=== PATIENT | female | born 1990 | race American Indian/Alaskan Native ===

== ENCOUNTER 2022-06-28 15:46 | Emergency (ER) | payer SELFPAY ==
[2022-06-28 17:39] LABS: Basophils % (Auto) 0.4 % (0.0-1.8); Eosinophils # (Auto) 0.2 K/mm3 (0.0-0.4); Eosinophils % (Auto) 1.5 % (0.0-4.3); Hematocrit 38.4 % (30.3-42.9); Hemoglobin 12.8 gm/dl (10.1-14.3); Mean Corpuscular HGB Conc 33 % (30-34); Mean Corpuscular Volume 82 fl (79-97); Monocytes # (Auto) 0.9 K/mm3 (0.0-0.8); Monocytes % (Auto) 8.5 % (0.0-7.3); Platelet Count 270 K/mm3 (140-440); Red Blood Count 4.69 M/mm3 (3.65-5.03); Red Cell Distribution Width 15.1 % (13.2-15.2)
[2022-06-28 17:57] LABS: Alanine Aminotransferase 14 units/L (7-56); Albumin 4.7 g/dL (3.9-5); Blood Urea Nitrogen 7 mg/dL (7-17); Calcium 9.6 mg/dL (8.4-10.2); Hemolysis Index 20
[2022-06-28 17:59] LABS: BUN/Creatinine Ratio 10
--- NOTE | 2022-06-28 22:20 | Ultrasound Report ---
ULTRASOUND OBSTETRIC INDICATION / CLINICAL INFORMATION: pelvic pain and . Clinical Gestational Age (GA) in weeks, days: 6, 3 TECHNIQUE: Transabdominal and Transvaginal. COMPARISON: None available. FINDINGS: GESTATIONAL SAC: Well-defined oval shape and intrauterine in location. YOLK SAC: No significant abnormality. EMBRYO/FETUS: No significant abnormality. - [place]-Rump Length = 0.5 cm = 6, 1 weeks, days - Heart Rate, beats per minute (if present) = 127 ADNEXA: No significant abnormality. FREE FLUID: None. ADDITIONAL FINDINGS: Multiple fibroids with the largest in the right subserosal region measuring up t o 3.4 cm. There is a small subchorionic hemorrhage (less than 25%). IMPRESSION: 1. Single, living intrauterine with estimated sonographic age of 6, 1 weeks, days. Small ( less than 25%) subchorionic hemorrhage. Signer Name: Lane Das DO Signed: 06/28/2022 10:16 PM Workstation Name: [id number]
--- NOTE | 2022-06-28 22:20 | Ultrasound Report ---
ULTRASOUND OBSTETRIC INDICATION / CLINICAL INFORMATION: pelvic pain and . Clinical Gestational Age (GA) in weeks, days: 6, 3 TECHNIQUE: Transabdominal and Transvaginal. COMPARISON: None available. FINDINGS: GESTATIONAL SAC: Well-defined oval shape and intrauterine in location. YOLK SAC: No significant abnormality. EMBRYO/FETUS: No significant abnormality. - [place]-Rump Length = 0.5 cm = 6, 1 weeks, days - Heart Rate, beats per minute (if present) = 127 ADNEXA: No significant abnormality. FREE FLUID: None. ADDITIONAL FINDINGS: Multiple fibroids with the largest in the right subserosal region measuring up t o 3.4 cm. There is a small subchorionic hemorrhage (less than 25%). IMPRESSION: 1. Single, living intrauterine with estimated sonographic age of 6, 1 weeks, days. Small ( less than 25%) subchorionic hemorrhage. Signer Name: Lane Das DO Signed: 06/28/2022 10:16 PM Workstation Name: [id number]
--- NOTE | 2022-06-29 01:04 | Emergency Department Report ---
ED Female HPI - General Chief complaint: Abdominal Pain Stated complaint: DIZZY/SEVERE PAINS IN ABD AND BACK/ Time Seen by Provider: 06/28/22 21:10 Source: patient Mode of arrival: Ambulatory Limitations: No Limitations - Related Data Allergies Allergy/AdvReac Type Severity Reaction Status Date / Time No Known Allergies Allergy Unverified 06/28/22 16:29 ED Review of Systems ROS: Stated complaint: DIZZY/SEVERE PAINS IN ABD AND BACK/ Other details as noted in HPI Comment: All other systems reviewed and negative ED Past Medical Hx - Past Medical History Previous Medical History?: No - Surgical History Past Surgical History?: No ED Physical Exam - General Limitations: No Limitations General appearance: alert, in no apparent distress - Head Head exam: Present: atraumatic, normocephalic - Eye Eye exam: Present: normal appearance, PERRL, EOMI Pupils: Present: normal accommodation - ENT ENT exam: Present: mucous membranes moist - Neck Neck exam: Present: normal inspection - Respiratory Respiratory exam: Present: normal lung sounds bilaterally. Absent: respiratory distress - Cardiovascular Cardiovascular Exam: Present: regular rate, normal rhythm. Absent: systolic murmur, diastolic murmur, rubs, gallop - GI/Abdominal GI/Abdominal exam: Present: soft, normal bowel sounds - Extremities Exam Extremities exam: Present: normal inspection - Back Exam Back exam: Present: normal inspection. Absent: CVA tenderness (R), CVA tenderness (L) - Neurological Exam Neurological exam: Present: alert, oriented X3, CN II-XII intact - Psychiatric Psychiatric exam: Present: normal affect, normal mood - Skin Skin exam: Present: warm, dry, intact, normal color. Absent: rash ED Course Vital Signs 06/28/22 16:27 Temperature 98.5 F Pulse Rate 91 H Respiratory 18 Rate Blood Pressure 126/73 [Left] O2 Sat by Pulse 99 Oximetry ED Medical Decision Making - Lab Data Result diagrams: 06/28/22 17:02 06/28/22 17:02 - Radiology Data Radiology results: report reviewed [facility] [address] [place] [address] Ultrasound Report Signed Patient: JAVID ANTHONY MR#: [id number] : 1990 Acct:[id number] Age/Sex: 31 / F ADM Date: 06/28/22 Loc: ED Attending Dr: Ordering Physician: CRISTHIAN CARRION Date of Service: 06/28/22 Procedure(s): US OB <= 14 weeks fetus Accession Number(s): [id number] cc: CRISTHIAN CARRION ULTRASOUND OBSTETRIC INDICATION / CLINICAL INFORMATION: pelvic pain and . Clinical Gestational Age (GA) in weeks, days: 6, 3 TECHNIQUE: Transabdominal and Transvaginal. COMPARISON: None available. FINDINGS: GESTATIONAL SAC: Well-defined oval shape and intrauterine in location. YOLK SAC: No significant abnormality. EMBRYO/FETUS: No significant abnormality. - [place]-Rump Length = 0.5 cm = 6, 1 weeks, days - Heart Rate, beats per minute (if present) = 127 ADNEXA: No significant abnormality. FREE FLUID: None. ADDITIONAL FINDINGS: Multiple fibroids with the largest in the right subserosal region measuring up to 3.4 cm. There is a small subchorionic hemorrhage (less than 25%). IMPRESSION: 1. Single, living intrauterine with estimated sonographic age of 6, 1 weeks, days. Small (less than 25%) subchorionic hemorrhage. Signer Name: Lane Sky DO Signed: 06/28/2022 10:16 PM Workstation Name: [id number] Transcribed By: PIO Dictated By: LANE SKY DO Electronically Authenticated By: LANE SKY DO Signed Date/Time: 06/28/222215 DD/ 13 TD/TT: Critical care attestation.: If time is entered above; I have spent that time in minutes in the direct care of this critically ill patient, excluding procedure time. ED Disposition Clinical Impression: Discomfort during , Uterine fibroids affecting , Subchorionic bleed Disposition: 01 HOME / SELF CARE / HOMELESS Is pt being admited?: No Does the pt Need Aspirin: No Condition: Stable Instructions: Abdominal Pain (ED), Uterine Fibroids, Subchorionic Hematoma Additional Instructions: F/u with your SURVEY INTERVIEWER as we discussed and alert of ultrasound findings. Referrals: KIP BEEBE MD [Primary Care Provider] - 3-5 Days
[2022-06-29 01:13] VITALS: BP 134/78
== END 2022-06-29 01:13 | disposition home or self-care (01) ==
LOC: ED 15:46
DX: O26.891 Other specified pregnancy related conditions, first trimester (principal); O34.10 Maternal care for benign tumor of corpus uteri, unspecified trimester; O41.8X20 Other specified disorders of amniotic fluid and membranes, second trimester, not applicable or unspecified
CPT/HCPCS: 36415; 76801; 76817; 80053; 84702; 85025; 99284